=== PATIENT | male | born 1985 | race Caucasian/White ===

== ENCOUNTER 2021-01-12 14:38 | Emergency (ER) | payer OTHER ==
[~2021-01-12] VITALS: Ht 172.7 cm; Wt 92.0 kg
--- NOTE | 2021-01-12 14:56 | NUR ---
EKG DONE IN TRIAGE.
--- NOTE | 2021-01-12 15:56 | NUR ---
BOOKBINDER CHIEF: PT TO ROOM FROM [facility] PRUITT
--- NOTE | 2021-01-12 16:26 | NUR ---
PT C/O OF LIGHT HEADEDNESS, SORE THROAT, COUGH WITH BLOOD, FATIGUE, DAIRRHEA PT DIAGNOSED WITH COVID LAST SATURDAY. ERMD AT BEDSIDE FOR EVAL. ATTACHED TO CARD/SP02/BP MONITORS. VSS. ROBLES. BED IN LOW, RAILS ENGAGED, CALL LIGHT ON LAP.
[2021-01-12] MEDS ORDERED: DEXAMETHASONE 4 MG TABLET ONE (16:50)
[2021-01-12 16:56] VITALS: BP 122/75
[2021-01-12] MEDS ORDERED: DEXAMETHASONE 4 MG TABLET PO ONE (17:00)
== END 2021-01-12 17:34 | disposition home or self-care (01) ==
LOC: ED 17:28
DX: U07.1 COVID-19 (principal); J18.9 Pneumonia, unspecified organism; R94.31 Abnormal electrocardiogram [ECG] [EKG]
CPT/HCPCS: 71045; 93005; 99283